=== PATIENT | female | born 1955 | race Hispanic/Latino ===

== ENCOUNTER → 2017-11-12 | Outpatient (CLI) | payer OTHER ==
--- NOTE | 2017-11-12 10:46 | Diagnostic Imaging Report ---
PROCEDURE:US RETROPERITONEAL ( KIDNEY ). COMPARISON:Renal mass protocol CT abdomen 03/07/2017. INDICATIONS:Renal mass TECHNIQUE: Mckeon-scale and color sonographic images of the bilateral kidneys and bladder where obtained in transverse and longitudinal planes. FINDINGS: RIGHT KIDNEY: 12.2 cm in length, cortical thickness 1.5 cm Cysts: None Solid masses: None Stones: None Hydronephrosis: None Echogenicity: Normal renal cortical echogenicity. LEFT KIDNEY: 12.3 cm in length, cortical thickness 1.8 cm Cysts: Peripelvic cysts described on the comparison CT are not identified by sonography. Solid masses: None. 8 mm enhancing lesion injecting from the left upper pole described on the comparison CT is not identified by sonography. Stones: None Hydronephrosis: None Echogenicity: Normal renal cortical echogenicity. Bladder: Unremarkable. Right and left ureteral jets are identified. CONCLUSION: The 8 mm enhancing lesion projecting from the upper pole of the left kidney described on the comparison CT examination 03/07/2017 is not identified by sonography. CT or MRI of the abdomen with and without contrast (renal mass protocol) is suggested to assess for stability. Dictated by: Chuck Correia M.D. on 11/12/2017 at 10:48 Electronically approved by: Chuck Correia M.D. on 11/12/2017 at 10:48
== END ==
LOC: US 09:00
PROVIDERS: ATTEND Urology
CPT/HCPCS: 76770

== ENCOUNTER → 2018-08-04 | Outpatient (CLI) | payer OTHER ==
[~2018-08-04] MED LIST: IOPAMIDOL 370 MG/ML 200 ML INFUS..BTL INJ ONE; SODIUM CHLORIDE 0.9% 50ML 50 ML ONE
[2018-08-04 09:56] LABS: BLOOD UREA NITROGEN 17 mg/dL (8-26); BUN/CREATININE RATIO 24 (6-25); CREATININE, SERUM 0.7 mg/dL (0.6-1.1); EST GLOMERULAR FILTRATION RATE > 60 ML/MIN (60-)
--- NOTE | 2018-08-04 11:17 | Diagnostic Imaging Report ---
EXAMINATION: CT of the abdomen and pelvis with contrast. TECHNIQUE: Spiral CT images of the abdomen and pelvis were performed from the lung bases to the lesser trochanters before and after the intravenous administration of 100 cc Isovue-370. Renal mass protocol was performed. Coronal and sagittal reformatted images were obtained. COMPARISON: CT urogram from 03/07/2017 CLINICAL HISTORY:Renal neoplasm DISCUSSION: ABDOMEN/PELVIS: LOWER THORAX:Unremarkable. HEPATOBILIARY: No focal hepatic lesions. No intra-or extrahepatic biliary ductal dilation. The gallbladder has been removed. SPLEEN: No splenomegaly. PANCREAS: No focal masses or ductal dilatation. ADRENALS: No adrenal nodules. KIDNEYS/URETERS: The previously described hyperdense lesion in the upper pole of the left kidney is less conspicuous on the current study and measures approximately 5 x 6 mm. Attenuation as follows: Precontrast 48 Hounsfield units; arterial phase: 45 Hounsfield units; venous phase: 22 Hounsfield units; delayed phase: 48 Hounsfield units. Precontrast images show no renal, ureteral, or bladder calculi. Peripelvic left renal cysts surrounding the anterior upper pole infundibulum are unchanged. Excretory phase images show no filling defects within the upper collecting systems, ureters, or urinary bladder. PELVIC ORGANS/BLADDER: Urinary bladder is unremarkable. Uterus is not identified and has presumably been removed. No adnexal mass. PERITONEUM/RETROPERITONEUM: Trace free pelvic fluid average internal attenuation 5-10 Hounsfield units. No pneumoperitoneum. LYMPH NODES: No pelvic sidewall, retroperitoneal, or mesenteric lymphadenopathy. VESSELS: Atherosclerotic calcification of the abdominal aorta at the celiac axis origin. No aneurysmal dilatation. Portal vein, splenic vein, and central superior mesenteric vein are patent. GI TRACT: Multiple diverticula along the sigmoid and, to a lesser extent, the descending colon without wall thickening or adjacent inflammation. Normal appendix. No small bowel dilatation to suggest obstruction. BONES AND SOFT TISSUE: No focal soft tissue abnormalities. No osseous destructive lesions. Multilevel degenerative disc changes of the lumbar spine. IMPRESSION: Previously described small hyperdense mass in the upper pole of the left kidney has decreased in size (now 5 x 6 mm, previously 7 x 8 mm) and does not show significant enhancement on the current examination. Findings are compatible with a resolving proteinaceous or hemorrhagic cyst. Peripelvic left renal cysts. Additional findings include large bowel diverticulosis without diverticulitis, trace nonspecific free pelvic fluid, and atherosclerotic vascular disease. Signed by: Dr. Chuck Correia M.D. on 08/04/2018 11:13 AM
== END ==
LOC: CT 09:09
PROVIDERS: ATTEND Urology
DX: N28.1 Cyst of kidney, acquired (principal); D41.01 Neoplasm of uncertain behavior of right kidney
CPT/HCPCS: 36415; 74178; 82565; 84520; Q9967

== ENCOUNTER → 2024-05-07 | Outpatient (REF) | payer MEDICARE | LOC: DX 09:37 | PROVIDERS: ATTEND Family Medicine | DX: Z12.31 Encounter for screening mammogram for malignant neoplasm of breast (principal); Z13.820 Encounter for screening for osteoporosis; M25.561 Pain in right knee; M79.672 Pain in left foot | CPT/HCPCS: 77067; 77080 ==